=== PATIENT | male | born 1955 | race Caucasian/White ===

== ENCOUNTER 2018-11-01 15:25 | Emergency (ER) | payer MEDICARE, OTHER ==
[2018-11-01] MEDS ORDERED: METO-504 PO (15:58)
[2018-11-01] MEDS ORDERED: SULF500T2 PO (15:58)
[2018-11-01] MEDS ORDERED: AMLO25TA PO (15:59)
[2018-11-01] MEDS ORDERED: AMBI10TA PO (15:59)
[2018-11-01] MEDS ORDERED: ASPI81TA85 PO (15:59)
[2018-11-01] MEDS ORDERED: CRES10TA32 PO (15:59)
[2018-11-01] MEDS ORDERED: FOLI800C PO (15:59)
[2018-11-01] MEDS ORDERED: OXTE600T PO (15:59)
[2018-11-01] MEDS ORDERED: [UNRECOGNIZED DRUG - CODE] PO (15:59)
[2018-11-01] MEDS ORDERED: MOTR200T44 PO (15:59)
[2018-11-01 16:12] LABS: BASO % 0.2 % (0.0-1.0); EOS # 0.1 10^3/uL (0.0-0.50); EOS % 2.3 % (0.0-3.0); HEMATOCRIT 34.5 % (42.0-52.0); HEMOGLOBIN 12.1 g/dl (13.5-17.5); LYMPH # 1.9 10^3/uL (1.5-4.5); LYMPH % 39.5 % (24.0-44.0); MEAN CORPUSCULAR HEMOGLOBIN 35.8 pg (27.0-33.0); MEAN CORPUSCULAR HGB CONC 35.1 g/dl (32.0-36.5); MEAN CORPUSCULAR VOLUME 102.1 fl (80.0-96.0); MONO # 0.4 10^3/uL (0.0-0.8); MONO % 7.4 % (0.0-5.0); NEUTROPHILS # 2.4 10^3/uL (1.8-7.7); NEUTROPHILS % 50.2 % (36.0-66.0); RED BLOOD COUNT 3.38 10^6/uL (4.30-6.10); WHITE BLOOD COUNT 4.7 10^3/uL (4.0-10.0)
--- NOTE | 2018-11-01 16:18 | REP ---
AP PORTABLE CHEST: 11/01/2018. Clinical history: Chest pain. Findings: There are no prior studies. Lungs are well inflated. The CP angles are sharply defined. There is no lateral pleural thickening. Minor apical scarring on the left compared to the right. No dense consolidation, pulmonary nodular or parenchymal mass. Heart size not enlarged for portable technique. There is no vascular redistribution or edema. The aorta is normal for age. Airway intact bony thorax shows no focal lesion. There are metallic anchors overlying the right humeral head from prior shoulder surgery. Impression: 1. No acute cardiopulmonary change. Electronically Signed by Naman Dubois MD 11/01/2018 07:54 P
[2018-11-01 16:35] LABS: ALBUMIN 3.6 GM/DL (3.2-5.2); ALT/SGPT 21 U/L (12-78); BILIRUBIN,DIRECT < 0.1 MG/DL (0.0-0.2); BILIRUBIN,TOTAL 0.4 MG/DL (0.2-1.0); BLOOD UREA NITROGEN 18 MG/DL (7-18); CALCIUM LEVEL 8.2 MG/DL (8.8-10.2); CARBON DIOXIDE LEVEL 27 MEQ/L (21-32); CHLORIDE LEVEL 108 MEQ/L (98-107); CPK CREATINE PHOSPHOKINASE 154 U/L (39-308); GLOMERULAR FILTRATION RATE > 60.0 (>49); GLUCOSE, FASTING 109 MG/DL (70-100); LIPASE 91 U/L (73-393); MAGNESIUM LEVEL 2.2 MG/DL (1.8-2.4); MB/CK RELATIVE INDEX 1.36 (< OR =4); NT-PRO BNP 91 PG/ML (<125); POTASSIUM SERUM 3.9 MEQ/L (3.5-5.1); SODIUM LEVEL 142 MEQ/L (136-145); THYROID STIMULATING HORMONE 0.738 uIU/ML (0.358-3.740); TOTAL PROTEIN 6.7 GM/DL (6.4-8.2); TROPONIN I < 0.02 NG/ML (< 0.10)
[2018-11-01 16:52] LABS: PLATELET COUNT, AUTOMATED 71 10^3/uL (150-450)
--- NOTE | 2018-11-01 19:27 | ECGEPIP ---
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
[2018-11-01 22:21] LABS: CPK CREATINE PHOSPHOKINASE 131 U/L (39-308); MB/CK RELATIVE INDEX 1.22 (< OR =4); TROPONIN I < 0.02 NG/ML (< 0.10)
[2018-11-01 22:31] VITALS: BP 141/78
--- NOTE | 2018-11-02 20:28 | ECGEPIP ---
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
== END 2018-11-01 23:25 | disposition home or self-care (01) ==
LOC: M ED 15:25
DX: R07.9 Chest pain, unspecified (principal); M79.602 Pain in left arm; R11.0 Nausea; I45.10 Unspecified right bundle-branch block; I49.3 Ventricular premature depolarization; I25.2 Old myocardial infarction; I10 Essential (primary) hypertension; E78.5 Hyperlipidemia, unspecified; Z91.018 Allergy to other foods; Z79.899 Other long term (current) drug therapy; Z79.82 Long term (current) use of aspirin